=== PATIENT | female | born 1965 | race Caucasian/White ===

== ENCOUNTER 2017-02-02 11:04 | Emergency (ER) | payer SELFPAY ==
[~2017-02-02] VITALS: Ht 160 cm; Wt 54.4 kg
[2017-02-02 11:06] VITALS: BP 162/88
[2017-02-02] MEDS ORDERED: Norco 5mg/325mg tab ORAL ONE (11:45)
--- NOTE | 2017-02-02 12:32 | Diagnostic Imaging Report ---
Indication: Pain 3 views of the right knee were obtained. Findings: The study is limited with artifact related to covering. There is a fracture of the patella best demonstrated on the lateral view. The fracture is intra-articular involving the lateral patellar facet and is nondisplaced. Associated soft tissue swelling noted anteriorly. Bones are osteopenic. There is generalized narrowing of the joint space in all 3 compartments. There is an incidental intramedullary curvilinear sclerotic focus within the proximal tibial metaphysis. This is either a bone infarct or enchondroma.. Impression: Acute nondisplaced intra-articular fracture of the patella. Osteoarthritis Osteoporosis Bone infarct versus enchondroma within the proximal tibia
[2017-02-02] MEDS ORDERED: IBUPROFEN600 MG ORAL (12:45)
[2017-02-02] MEDS ORDERED: NORCO 5-325 TA1 EACH ORAL (12:45)
[2017-02-02 13:05] VITALS: BP 170/129
[2017-02-02] MEDS ORDERED: Ketorolac 30mg Inj IM ONE (13:15)
[2017-02-02 13:40] VITALS: BP 161/93
--- NOTE | 2017-02-02 14:15 | Emergency Room Report ---
History of Present Illness General Chief Complaint: Multiple Trauma/Fall Source: Patient Present Illness HPI 51-year-old female presents ED complaining of right knee pain and swelling. States that last night she tripped and fallen landing on her right knee. States pain is a 10 out of 10, throbbing, nonradiating. Unable to bear weight. Denies any other injuries. No other aggravating relieving factors. Denies any other associated symptoms Allergies: Coded Allergies: No Known Allergies (Unverified , 02/02/17) Patient History Past Medical History: none Past Surgical History: none Pertinent Family History: none Social History: Denies: smoking, alcohol use, drug use Now: No Immunizations: UTD Reviewed Nursing Documentation: PMH: Agreed, PSxH: Agreed Nursing Documentation-PMH Past Medical History: No Stated History Review of Systems All Other Systems: negative except mentioned in HPI Physical Exam Vital Signs Date Time Temp Pulse Resp B/P (MAP) Pulse Ox O2 Delivery O2 Flow Rate FiO2 02/02/17 10:59 98.1 120 16 162/9 99 Room Air Sp02 EP Interpretation: reviewed, normal General Appearance: alert, GCS 15, non-toxic, mild distress Head: normocephalic Eyes: bilateral eye normal inspection, bilateral eye PERRL ENT: normal ENT inspection Neck: normal inspection Respiratory: normal inspection Cardiovascular #1: normal inspection Gastrointestinal: normal inspection Rectal: deferred Genitourinary: no CVA tenderness Musculoskeletal: decreased range of motion, swelling - R knee Neurologic: alert, oriented x3, responsive, motor strength/tone normal, sensory intact, speech normal Psychiatric: normal inspection Skin: normal inspection Lymphatic: normal inspection Procedures Splinting Splinting : Consent: Verbal Pre-Made Type: knee immobilizer Pre-Proc Neuro Vasc Exam: normal Post-Proc Neuro Vasc Exam: normal Patient Tolerated: Well Complications: None Medical Decision Making Diagnostic Impression: Primary Impression: Patella fracture Qualified Codes: S82.001A - Unspecified fracture of right patella, initial encounter for closed fracture ER Course Hospital Course 51-year-old F presents to ED complaining of R knee pain s/p trip and fall Differential diagnoses include: Fracture, dislocation, sprain, contusion Clinical course Patient placed on stretcher. After initial history and physical, I ordered pain medications and Xrays of Rknee Xrays shows patellar fracture. nondisplaced. placed in knee immobilzier. given crutches Diagnosis - patella fx Stable and discharged to home with prescription for Motrin, Ellinger. apply ice, keep elevated. weight bear as tolerated. Followup with ortho. Return to ED if symptoms recur or worsen Other X-Ray Diagnostic Results Other X-Ray Diagnostic Results : X-Ray ordered: Right knee # of Views/Limited Vs Complete: 3 View Indication: Pain EP Interpretation: Yes Interpretation: no dislocation, no soft tissue swelling, other - patellar fracture with intra Impression: Other - patellar fx Interpreting ER Provider: Electronically signed by Kushal Beckman MD Last Vital Signs Date Time Temp Pulse Resp B/P (MAP) Pulse Ox O2 Delivery O2 Flow Rate FiO2 02/02/17 13:40 90 19 161/93 99 Room Air 02/02/17 13:40 98.0 Status: improved Disposition: HOME, SELF-CARE Condition: Stable Scripts Hydrocodone Bit/Acetaminophen 5-325* (NORCO 5-325*) 1 Each Tablet 1 TAB ORAL Q6H Y for For Pain, #20 TAB 0 Refills Prov: KUSHAL BECKMAN M.D. 02/02/17 Ibuprofen* (MOTRIN*) 600 Mg Tablet 600 MG ORAL Q8H Y for For Pain, #30 TAB 0 Refills Prov: KUSHAL BECKMAN M.D. 02/02/17 Referrals: NOT CHOSEN DEYANIRA/,REFERRING (PCP) Patient Instructions: Patellar Fracture, Adult KUSHAL BECKMAN M.D. Feb 02, 2017 14:15
== END 2017-02-02 13:40 | disposition home or self-care (01) ==
LOC: EDBD 11:04 → EMR 11:15
DX: S82.001A Unspecified fracture of right patella, initial encounter for closed fracture (principal); W01.0XXA Fall on same level from slipping, tripping and stumbling without subsequent striking against object, initial encounter; Y93.9 Activity, unspecified; Y99.9 Unspecified external cause status
CPT/HCPCS: 29505; 73562; 96372; 99284; J1885